=== PATIENT | female | born 1990 | race Caucasian/White ===

== ENCOUNTER 2020-10-05 07:01 | Inpatient (IN) | payer BC ==
[2020-10-05] VITALS (41 sets, daily range): BP systolic 94–140; BP diastolic 50–79; PULSE 60–87; TEMP 98.7
[~2020-10-05] VITALS: Ht 157.5 cm; Wt 87.3 kg
[2020-10-05 07:52] LABS: HEMOGLOBIN 12.1 g/dl (12.5-16.0); MEAN CELL VOLUME 91 fl (80.0-100.0); MEAN CORPUSCULAR HEMOGLOBIN 30 pg (27.0-31.0); MEAN CORPUSCULAR HGB CONC 33 g/dl (33.0-37.0); MEAN PLATELET VOLUME 10.8 fl (7.4-10.4); PLATELET COUNT 231 K/mm3 (130-400); RED BLOOD COUNT 4.06 M/mm3 (4.10-5.30); REDCELL DISTRIBUTION WIDTH-CV 13.2 % (11.5-14.5)
[2020-10-05] MEDS ORDERED: PROBIOTIC BLEN1 EACH PO (08:00)
[2020-10-05] MEDS ORDERED: ZOLOFT 50MG50 MG PO (08:00)
[2020-10-05] MEDS ORDERED: PRENATAL TABLET PO (08:00)
[2020-10-05 08:08] LABS: LYMPHOCYTE 16 % (20.0-51.0); MYELOCYTE 1 % (0-0); NEUTROPHILS 77 % (42.0-75.2)
[2020-10-05 08:09] LABS: HYPOCHROMIA 2+; PLATELET ESTIMATE NORMAL (NORMAL)
[2020-10-05] MEDS ORDERED: PERCOCET 325 MG1 TA2 PO (17:01)
[2020-10-05] MEDS ORDERED: MOTRIN 800800 MG/TAB PO (17:01)
[2020-10-06] VITALS: BP 118/70; PULSE 72; TEMP 98.8
[2020-10-06 03:30] VITALS: BP 104/51; PULSE 66; TEMP 98.9
[2020-10-06 07:00] VITALS: BP 122/63; PULSE 71; TEMP 97.8
[2020-10-06 11:50] VITALS: BP 116/56; PULSE 86; TEMP 98.2
[2020-10-06 17:40] VITALS: BP 109/63; PULSE 78; TEMP 98.1
[2020-10-06 20:00] VITALS: BP 118/67; PULSE 69; TEMP 97.9
[2020-10-07 04:00] VITALS: BP 125/67; PULSE 66; TEMP 97.8
[2020-10-07 07:15] VITALS: BP 100/51; PULSE 75; TEMP 97.7
== END 2020-10-07 14:50 | disposition home or self-care (01) | DRG 787 ==
LOC: LDR 07:01 → LDRO 07:01 → LDR 07:19 → OB 18:37
PROVIDERS: ADMIT Obstetrics & Gynecology
PROC: 10D00Z1 Extraction of Products of Conception, Low, Open Approach (ICD-10-PCS; principal; 2020-10-05)
PROC: 10907ZC Drainage of Amniotic Fluid, Therapeutic from Products of Conception, Via Natural or Artificial Opening (ICD-10-PCS; 2020-10-05)
DX: O62.0 Primary inadequate contractions (principal); O72.1 Other immediate postpartum hemorrhage; O99.344 Other mental disorders complicating childbirth; F41.9 Anxiety disorder, unspecified; O36.63X0 Maternal care for excessive fetal growth, third trimester, not applicable or unspecified; Z3A.39 39 weeks gestation of pregnancy; Z37.0 Single live birth
CPT/HCPCS: J0690; J1885; J2175; J2370; J2400; J2405; J2590; J2795; J3010; J7120

== ENCOUNTER 2020-10-17 01:02 | Emergency (ER) | payer BC ==
[~2020-10-17] VITALS: Ht 157.5 cm; Wt 75.0 kg
[~2020-10-17 01:02] MED LIST: MOTRIN 800800 MG/TAB PO; PERCOCET 325 MG1 TA2 PO; PRENATAL TABLET PO; PROBIOTIC BLEN1 EACH PO; ZOLOFT 50MG50 MG PO
[2020-10-17 01:08] VITALS: TEMP 98.1
[2020-10-17 02:28] LABS: BASO % 0.4 % (0.0-2.0); EOS # 0.2 (0.0-0.7); EOS % 2.9 % (0-4.0); GRAN # 5.8 (1.4-6.5); GRAN % 69.4 % (42.2-75.2); HEMATOCRIT 38.4 % (37.0-47.0); HEMOGLOBIN 12.5 g/dl (12.5-16.0); LYMPH # 1.8 (1.2-3.4); LYMPH % 21.6 % (20.0-51.0); MEAN CELL VOLUME 91 fl (80.0-100.0); MEAN CORPUSCULAR HEMOGLOBIN 30 pg (27.0-31.0); MEAN CORPUSCULAR HGB CONC 33 g/dl (33.0-37.0); MEAN PLATELET VOLUME 8.8 fl (7.4-10.4); MONO # 0.4 (0.1-0.6); MONO % 5.2 % (1.7-9.3); PLATELET COUNT 423 K/mm3 (130-400); RED BLOOD COUNT 4.24 M/mm3 (4.10-5.30); REDCELL DISTRIBUTION WIDTH-CV 13.2 % (11.5-14.5)
[2020-10-17 02:38] LABS: ALANINE AMINOTRANSFERASE 23 U/L (4-34); ALKALINE PHOSPHATASE 123 U/L (50-136); ANION GAP 10 mmol/L (7-16); AST,SGOT 24 U/L (15-37); BILIRUBIN,TOTAL < 0.1 mg/dL (0.0-1.0); BLOOD UREA NITROGEN 16 mg/dL (7-17); CALCIUM 9.2 mg/dL (8.4-10.2); CARBON DIOXIDE 25 mmol/L (22-30); CHLORIDE 105 mmol/L (98-107); GLUCOSE 95 mg/dL (74-106); POTASSIUM 4.4 mmol/L (3.4-5.0); SODIUM 140 mmol/L (137-145); TOTAL PROTEIN 7.7 gm/dL (6.4-8.2)
[2020-10-17 02:58] LABS: COLLECTION METHOD CATHETER
[2020-10-17 03:03] LABS: PH 7 (5-8); SQUAMOUS EPITHELIAL None Seen /hpf; URINE APPEARANCE Clear; URINE BACTERIA None Seen /hpf; URINE BILIRUBIN Negative (NEGATIVE); URINE BLOOD Negative (NEGATIVE); URINE COLOR Straw; URINE GLUCOSE Negative (NEGATIVE); URINE KETONE Negative (NEGATIVE); URINE LEUKOCYTE ESTERASE Negative (NEGATIVE); URINE NITRATE Negative (NEGATIVE); URINE PROTEIN(semi-quant) Negative (NEGATIVE); URINE RBC None Seen /hpf; URINE UROBILINOGEN Negative (NEGATIVE)
[2020-10-17 03:25] VITALS: BP 114/78; PULSE 66
== END 2020-10-17 03:31 | disposition home or self-care (01) ==
LOC: COL.ER 01:02
PROVIDERS: Emergency Medicine Emergency Medical Services
DX: O99.893 Other specified diseases and conditions complicating puerperium (principal); R10.10 Upper abdominal pain, unspecified; Z88.2 Allergy status to sulfonamides; Z88.8 Allergy status to other drugs, medicaments and biological substances

== ENCOUNTER → 2023-07-19 | Outpatient (CLI) | payer BC | LOC: COL.RAD 14:34 | DX: Z31.41 Encounter for fertility testing (principal) | CPT/HCPCS: Q9967 ==